=== PATIENT | female | born 1945 | race Caucasian/White ===

== ENCOUNTER 2016-12-02 15:54 | Inpatient (IN) | payer OTHER ==
--- NOTE | ~2016-12-02 | CR63 ---
[facility] A Service of [facility] RADIOLOGY TEXT RESULTS PATIENT: NICOL HARDING LOCATION: [place] [address] : [birth year] UNIT #: [id number] AGE: [address]: Jasbir Jean MD SEX: F ORDER DR: [id number] [facility] [address] [place], [place] [address] [id number] I MR#: [id number] Acc #: [id number] NAME: NICOL HARDING : 1945 SEX: F STUDY DATE/TIME: 12/02/2016 20:39 UNIT: [facility] ROOM: [facility] STUDY DESCRIPTION: CR Chest 2 View Attending Physician: Jasbir Jean M.D. Ordering Physician: Jasbir Jean M.D. Primary Care Physician: Yuki Roberson M.D. MEDICAL IMAGING REPORT This report is preliminary unless electronic signature is present EXAM Chest PA and lateral 12/02/2016 COMPARISON 10/28/2014. HISTORY Chest pain, tachycardia, shortness of breath for over 1 week. FINDINGS PA and lateral views are obtained showing postop changes of prior median sternotomy. Heart size is within normal limits. Vascular pattern in the chest is normal. Lungs are clear. CONCLUSION Postop changes of median sternotomy. No acute process in the chest. Dictated by... Francisco Griffin M.D. THIS IS AN ELECTRONICALLY VERIFIED REPORT Francisco Griffin M.D. at 12/06/2016 5:07 PM JOHNNY/michael TD: 12/03/2016 07:06 JOB #: [id number] MEDICAL IMAGING REPORT COPY
--- NOTE | ~2016-12-02 | CO ---
Unit #: [id number] #: [id number] Patient: NICOL HARDING [id number] [address] [place], [place] [address] [id number] I MR#: [id number] NAME: NICOL HARDING ROOM: [address] Age: 71 Sex: F Admission Date: 12/02/2016 : 1945 Attending Physician: Jasbir Jean M.D. Primary Care Physician: Yuki Roberson M.D. Consultation Date: 12/02/2016 CONSULTATION REPORT REASON FOR CONSULTATION Diabetes management. HISTORY OF PRESENT ILLNESS The patient is a 71-year-old female with past medical history of coronary artery disease, hypertension, hyperlipidemia, diabetes, COPD, hypothyroidism, who presented to the emergency department for evaluation of the above. The patient states that she has been feeling poorly for at least a week. She was apparently seen by her primary care physician on 11/26/2016 and was diagnosed with bronchitis. She was given azithromycin, Tessalon Perles and prednisone. She was being seen today in the office today for followup. She was noted to have atrial flutter with rapid ventricular response in a rate of 146 beats per minute. She was sent to the emergency department for further evaluation and treatment. The patient reports that she does have two- to three-pillow orthopnea as well as paroxysmal nocturnal dyspnea and dyspnea on exertion that is new over the past week. She denies any fever, no chest pain, no vomiting, no diarrhea, no abdominal pain, no change in her weight. In the emergency department, EKG confirmed atrial flutter with a rate of 116 beats per minute. She was given 15 mg of Cardizem followed by 20 mg and the started on a Cardizem drip. She was admitted by Dr. Jean. HIPS was consulted for diabetes management. Dr. Gutierrez was consulted for COPD. Regarding diabetes, the patient is on Januvia 50 mg daily as well as metformin 1000 mg b.i.d. She states that she has been taking her medications as prescribed. She states that her blood sugars are typically in the low 100s. Blood sugar in the emergency department was 208. PAST MEDICAL HISTORY 1. Admission to [facility] in 2007. She underwent coronary artery bypass grafting during that admission. 2. Coronary artery disease, status post coronary artery bypass grafting. The patient has not routinely followed up with a electrical manager. 3. COPD not on home oxygen and not followed by a laboratory analyst. 4. Hypertension. 5. Hyperlipidemia. 6. Diabetes. 7. Hypothyroidism. PAST SURGICAL HISTORY Unit #: [id number] #: [id number] Patient: NICOL HARDING 1. Thyroidectomy. 2. Hysterectomy. 3. Coronary artery bypass grafting. ALLERGIES 1. Penicillin. 2. Sulfa. 3. Lovastatin. 4. Simvastatin. 5. Atorvastatin. 6. Rosuvastatin. HOME MEDICATIONS 1. Aspirin 81 mg daily. 2. Azithromycin 250 mg daily. 3. Benzonatate 200 mg t.i.d. p.r.n. 4. Lexapro 20 mg daily. 5. Flonase daily. 6. Folic acid 1 mg daily. 7. Lasix 40 mg b.i.d. 8. Januvia 50 mg daily. 9. Levothyroxine 150 mcg daily. 10. Mobic 15 mg daily. 11. Metformin 1000 mg b.i.d. 12. Metoprolol 25 mg b.i.d. 13. Nitroglycerin 0.4 mg sublingual p.r.n. 14. Prednisone 40 mg daily. 15. Ventolin two puffs q.4 h. p.r.n. SOCIAL HISTORY The patient lives with her granddaughter. She quit smoking in 2007. There is no alcohol use. She walks without assistance. FAMILY HISTORY Notable for her mother having some type of bone malignancy. Her father had coronary artery disease. REVIEW OF SYSTEMS A complete review of systems is negative except as indicated in the HPI. PHYSICAL EXAMINATION VITAL SIGNS: Temperature not recorded, pulse initially 150, respirations 17, blood pressure 124/94, oxygen saturation 94% on room air. GENERAL: The patient is a female who is awake and alert. HEENT: Head is atraumatic. Mucous membranes are moist. NECK: Supple. Trachea is midline. LUNGS: Demonstrate scattered expiratory wheezes. Breathing is not labored with conversation. HEART: Irregular. ABDOMEN: Obese, soft, nontender. Bowel sounds present in all four quadrants. EXTREMITIES: Trace pedal edema. NEUROLOGIC: Patient is awake and alert. She follows commands. PSYCHIATRIC: Mood and affect are normal. Patient is cooperative. SKIN OF EXAMINED AREAS: Warm and dry. DIAGNOSTIC STUDIES LABORATORY: Complete blood count notable for white blood cell count of Unit #: [id number] #: [id number] Patient: NICOL HARDING 13.7. Troponin less than 0.05. Comprehensive metabolic panel notable for potassium 3.4, glucose 208, alkaline phosphatase 116, magnesium is 2. Urinalysis is essentially negative. IMAGING: It does not appear that she has had a chest x-ray. CARDIOVASCULAR: EKG shows atrial flutter with a rate of 116 beats per minute. ASSESSMENT The patient is a 71-year-old female with: 1. New-onset atrial fibrillation. 2. Coronary artery disease, status post coronary artery bypass grafting. 3. Hypertension. 4. Hyperlipidemia. 5. Uncontrolled diabetes. 6. Chronic obstructive pulmonary disease. 7. Former smoker. 8. Hypothyroidism. 9. Morbid obesity with a BMI of 41 present on admission. PLAN 1. Regarding diabetes, I have ordered a hemoglobin A1c as well as low dose sliding scale insulin with Accu-Cheks. 2. Regarding hypothyroidism, I have ordered a TSH. Thank you very much for the consultation. We will follow the patient along closely with you. Dictated by... Ruchi Bowie M.D. AVE/shan TD: 12/02/2016 21:24 JOB #: [id number] CONSULTATION REPORT X Ruchi Bowie MD CONSULTATION REPORT
--- NOTE | ~2016-12-02 | HP ---
Unit #: [id number] #: [id number] Patient: NICOL HARDING [id number] [place] [address] [facility]. [place], [place] [address] [id number] I MR#: [id number] NAME: NICOL HARDING. ROOM: 13278 Age: 71 Sex: F Admission Date: 12/02/2016 : 1945 Attending Physician: Jasbir Jean M.D. Primary Care Physician: Yuki Roberson M.D. HISTORY AND PHYSICAL CHIEF COMPLAINT Rapid heart rate with shortness of breath. HISTORY OF PRESENT ILLNESS This is a 71-year-old female who has prior history of coronary artery disease and bypass. She went to her primary care physician's office because she was having cough with shortness of breath. She was also having some palpitations. She had EKG done and was found to be in atrial flutter with rapid ventricular rate. She was sent here. She has been started on Cardizem drip. Now she is feeling a little better but she is still short of breath and has cough. She denies any chest pain, orthopnea, PND, or syncope. PAST MEDICAL HISTORY 1. Diabetes. 2. COPD. 3. Bronchial asthma. 4. Coronary artery disease, status post bypass. 5. Hypothyroidism. PAST SURGICAL HISTORY History of coronary artery bypass. HOME MEDICATIONS 1. Metformin 1000 mg b.i.d. 2. Metoprolol 25 mg b.i.d. 3. Januvia one tablet daily. 4. Lasix 40 mg b.i.d. 5. Ventolin inhaler. 6. Prednisone 40 mg p.o. daily. 7. She was also taking Zithromax. ALLERGIES 1. Penicillin. 2. Statin gives her muscle ache. SOCIAL HISTORY She does not smoke, does not drink. FAMILY HISTORY Negative for premature CAD. REVIEW OF SYSTEMS She is having a lot of cough. She gets short of breath. She has no chest Unit #: [id number] #: [id number] Patient: NICOL HARDING pain. She denies any palpitations or syncope. She denies any heartburn, dysphagia, dysuria. She denies hematuria or dysuria. She denies any back pain. She has some arthritis and difficulty walking. All other systems reviewed and they are negative. PHYSICAL EXAMINATION VITAL SIGNS: Heart rate 110, blood pressure 130/60, respiratory rate 18. GENERAL: She is lying comfortably in bed. HEENT: Eyes: Conjunctivae normal. Pupils round and reactive. Oral mucosa is moist. No central cyanosis. NECK: No thyromegaly. Carotid upstrokes are normal. JVD is markedly elevated. LUNGS: She is breathing normal, clear on auscultation. HEART: Prominent left parasternal lift. S1, S2 normally heard. Systolic murmur heard at the apex. ABDOMEN: Distended but soft. Liver and spleen are not enlarged. Abdominal aorta not palpable. RECTAL: Guaiac not indicated. EXTREMITIES: No pedal edema. 2+ bilateral femoral and dorsalis pedis pulses. Digits no clubbing. SKIN: No rash or abnormal pigmentation. NEUROLOGIC: She is oriented x3. Mood is normal. Muscle tone in all extremities normal. DIAGNOSTIC STUDIES CARDIOVASCULAR: EKG definitely having atrial flutter with rapid ventricular rate with nonspecific ST-T changes. ASSESSMENT 1. Atrial flutter with rapid ventricular rate. 2. Congestive heart failure. 3. Coronary artery disease, status post bypass. 4. History of diabetes. 5. Hypercholesterolemia, intolerant to statin. 6. History of chronic obstructive pulmonary disease. PLAN 1. Patient is to be admitted to a monitored bed. 2. We will continue home medications except metoprolol which we will increase to 50 mg b.i.d. and we will switch her to IV Lasix 40 mg t.i.d. 3. I will put her on Lovenox 1 mg/kg subcu b.i.d. 4. I will also do an echo to assess LV size and function. 5. I will also do serial troponin to rule out myocardial infarction. 6. I will consult Pulmonary for COPD and asthma management. 7. I will also consult HIPS service for diabetic management. Dictated by Rae Ledesma/shan TD: 12/02/2016 20:51 Unit #: [id number] #: [id number] Patient: NICOL HARDING JOB #: [id number] HISTORY AND PHYSICAL X Jasbir Jean MD HISTORY AND PHYSICAL
--- NOTE | ~2016-12-02 | BMI ---
[facility] DATE: 12/04/16 Patient: NICOL HARDING Physician: [employer] Address: [address] [facility] Room/Bed: [address] [place] [address], Zip: [place] [address] Admit Date: 12/02/16 Date of : [birth year] Height: 5 0 Weight: 206 93.8 HIGH BMI NOTE: DX: 71 YO FEMALE ADMITTED FOR FAST HEART RATE ANTHROPOMETRICS: HT: 60" WT: 93.8 KG BMI: 40.3 INTERVENTION: 1. HEART HEALTHY/ CONSISTENT CARBOHYDRATE DIET RECOMMENDATIONS: 1. CONTINUE CURRENT DIET TO PROMOTE GRADUAL WEIGHT LOSS AND GLYCEMIC CONTROL. Respectfully, GLYNN SANTOS RD, LD [facility] cc: client file
--- NOTE | ~2016-12-02 | EKG ---
PATIENT: NICOL HARDING UNIT #: [id number] Ventricular Rate: 56 BPM Atrial Rate: 56 BPM P-R Interval: 216 ms QRS Duration: 90 ms Q-T Interval: 518 ms QTC Calculation(Bezet): 499 ms P [place]: 39 degrees Calculated R [place]: -4 degrees Calculated T [place]: 42 degrees Diagnosis Line: Sinus bradycardia with marked sinus arrhythmia Diagnosis Line: with 1st degree A-V block Diagnosis Line: Prolonged QT Diagnosis Line: Abnormal ECG Diagnosis Line: When compared with ECG of 02-DEC-2016 15:39, Diagnosis Line: (unconfirmed) Diagnosis Line: Sinus rhythm has replaced Atrial flutter Diagnosis Line: Vent. rate has decreased BY 60 BPM Diagnosis Line: Questionable change in QRS axis Diagnosis Line: Confirmed by YOVANI MCMILLAN MD ([id number]) on 12/06/2016 Diagnosis Line: 7:09:12 PM INTERPRETING MD: HIPOLITO RANKIN
--- NOTE | ~2016-12-02 | DS ---
Unit #: [id number] #: [id number] Patient: NICOL HARDING [id number] [address] [place], [place] [address] [id number] I MR#: [id number] NAME: NICOL HARDING ROOM: 563 Age: 71 Sex: F Admission Date: 12/02/2016 : 1945 Discharge Date: 12/04/2016 Attending Physician: Jasbir Jean M.D. Primary Care Physician: Yuki Roberson M.D. DISCHARGE SUMMARY HOSPITAL COURSE The patient was admitted with cough, shortness of breath and palpitations. The patient went to her PCP, had an EKG done and was found to be in A fib with RVR and was sent to the hospital for further evaluation. The patient was initially placed on a Cardizem drip for rate control, and pulmonary and hospitalists were consulted to assist with managing the patient. HIPS was consulted for diabetes management, and pulmonary was consulted for shortness of breath and pulmonary management. The patient did eventually convert to sinus rhythm with a first-degree AV block. The patient had her Metoprolol increased from 25 to 50 mg while here and tolerated it well with stable blood pressure and heart rate. The patient was placed on Eliquis 5 mg p.o. b.i.d. for anticoagulation. Prior to the Eliquis the patient was on Lovenox therapeutic dose. Echo obtained during admission showed an EF of 45%. Pulmonary was managing the patient's COPD and has deemed the patient stable for discharge from their standpoint. It was determined that the blood sugars were probably running high due to the patient's use of prednisone at home. Pulmonary will follow up with the patient on an outpatient basis for a sleep study for obstructive sleep apnea evaluation. The patient had an echo on 12/03/16 that showed mild concentric LVH with A fib/flutter noted and an RVSP of 48, [id number] tricuspid regurgitation, EF 50% to 55%. The patient is stable on day of discharge. Heart rate is well controlled on current medications. The patient is able to get up and ambulate without any kind of complications or side effects of shortness of breath, chest pain, pressure or dizziness. DISCHARGE ALLERGIES Penicillin, sulfa, lovastatin, simvastatin, atorvastatin and rosuvastatin. DISCHARGE MEDICATIONS 1. Prednisone 40 daily. 2. Albuterol 2 puffs q.4 hours as needed for shortness of breath. 3. Flonase daily as needed. 4. Eliquis 5 mg p.o. b.i.d. 5. Lexapro 20 mg p.o. daily. 6. Metformin 1,000 mg p.o. b.i.d. 7. Januvia 50 mg p.o. daily. 8. Tessalon Perles 200 mg p.o. t.i.d. as needed for cough. 9. Metoprolol 50 mg p.o. b.i.d. Unit #: [id number] #: [id number] Patient: NICOL HARDING 10. Furosemide 40 mg p.o. b.i.d. 11. Aspirin 81 mg daily. 12. Mobic 15 mg p.o. daily as needed for pain. 13. Potassium chloride 20 mEq p.o. b.i.d. 14. Synthroid 150 mcg p.o. daily. 15. Nitroglycerin sublingual as needed for chest pain. 16. Folic acid 1 mg p.o. daily. PHYSICAL EXAMINATION GENERAL: This is a 71-year-old white female who is alert and oriented x3 in no apparent distress. VITAL SIGNS: Blood pressure 140/72, temp 97.8, pulse 58, respirations 16. HEENT: Pupils are equal, round and reactive. Oral mucosa is moist. LUNGS: Slight wheezing. NECK: No JVD. No thyromegaly. No lymphadenopathy. No carotid bruits. HEART: S1, S2. No S3, S4. No clicks. No rubs. No murmurs. ABDOMEN: Soft. Bowel sounds positive. Nontender, nondistended. EXTREMITIES: No edema. DIAGNOSTIC STUDIES DURING HOSPITALIZATION LABORATORY: Hemoglobin A1C of 7.5. BNP 51. Troponin less than 0.05 and 0.08 and 0.08 and 0.07. Sodium 133, potassium 3.5, chloride 103, CO2 23, glucose 171, BUN 25, creatinine 1.2. White count 14.1, hemoglobin 12.5, hematocrit 37.6, platelets 347. TSH 0.99. Urinalysis was negative for UTI. IMAGING: Chest x-ray showed no acute process. Vascular pattern normal. Heart size normal. Lungs clear. DISCHARGE DIAGNOSES 1. Atrial flutter with rapid ventricular response, now sinus bradycardia to sinus rhythm. 2. Atherosclerotic heart disease status post coronary artery bypass graft. 3. Chronic obstructive pulmonary disease. 4. Diabetes. 5. Hypothyroidism. 6. Ejection fraction of 50% to 55%. 7. Hyperlipidemia, intolerant to statin therapy. DISCHARGE PLAN The patient will be discharged home to follow up with pulmonary, cardiology and PCP. DISCHARGE CONDITION Stable. SPECIFIC DISCHARGE INSTRUCTIONS GIVEN TO PATIENT The patient is to take Eliquis twice a day for anticoagulation therapy; however, if the patient is unable to afford her Eliquis, the patient is to call the office on Tuesday to get a script for Coumadin therapy. Until Tuesday, she can take a full dose aspirin for antiplatelet therapy. Discussed this with Dr. Velasquez prior to discharge, who agrees that this plan is acceptable, and the patient is deemed stable for discharge. Dictated by... Delia Cannon APRN for Unit #: [id number] #: [id number] Patient: NICOL HARDING M.D. LA/db TD: 12/07/2016 09:07 JOB #: [id number] DISCHARGE SUMMARY X X DISCHARGE SUMMARY
--- NOTE | ~2016-12-02 | EKG ---
PATIENT: NICOL HARDING UNIT #: [id number] Ventricular Rate: 151 BPM Atrial Rate: 302 BPM QRS Duration: 68 ms Q-T Interval: 314 ms QTC Calculation(Bezet): 497 ms P [place]: 86 degrees Calculated R [place]: 65 degrees Calculated T [place]: -8 degrees Diagnosis Line: Atrial flutter with 2:1 A-V conduction Diagnosis Line: Marked ST abnormality, possible inferolateral Diagnosis Line: subendocardial injury Diagnosis Line: Abnormal ECG Diagnosis Line: No previous ECGs available Diagnosis Line: Confirmed by YOVANI MCMILLAN MD ([id number]) on 12/06/2016 Diagnosis Line: 7:03:54 PM INTERPRETING MD: HIPOLITO RANKIN
--- NOTE | ~2016-12-02 | EKG ---
PATIENT: NICOL HARDING UNIT #: [id number] Ventricular Rate: 116 BPM Atrial Rate: 288 BPM QRS Duration: 84 ms Q-T Interval: 358 ms QTC Calculation(Bezet): 497 ms Calculated R [place]: 54 degrees Calculated T [place]: 27 degrees Diagnosis Line: Atrial flutter with variable A-V block Diagnosis Line: Abnormal ECG Diagnosis Line: When compared with ECG of 02-DEC-2016 14:36, Diagnosis Line: (unconfirmed) Diagnosis Line: ST no longer depressed in Inferior leads Diagnosis Line: ST no longer depressed in Anterior leads Diagnosis Line: Nonspecific T wave abnormality no longer evident Diagnosis Line: in Lateral leads Diagnosis Line: Confirmed by YOVANI MCMILLAN MD ([id number]) on 12/06/2016 Diagnosis Line: 7:04:08 PM INTERPRETING MD: HIPOLITO RANKIN
--- NOTE | ~2016-12-02 | CO ---
Unit #: [id number] #: [id number] Patient: NICOL HARDING [id number] [address] [address] [id number] I MR#: [id number] NAME: NICOL HARDING ROOM: 563 Age: 71 Sex: F Admission Date: 12/02/2016 : 1945 Attending Physician: Jasbir Jean M.D. Primary Care Physician: Yuki Roberson M.D. Consultation Date: 12/02/2016 CONSULTATION REPORT REASON FOR CONSULTATION COPD and shortness of breath. HISTORY OF PRESENT ILLNESS This is a 71-year-old female who presented with a complaint of shortness of breath and was found to be in rapid atrial fibrillation. Denies any chest pain. No nausea, no vomiting, no diarrhea. I am seeing the patient at bedside. She denies any headache, blurry vision. No chest pain. REVIEW OF SYSTEMS Positive for pallor. No edema, no cyanosis, no jaundice. PHYSICAL EXAMINATION VITAL SIGNS: Temperature 98, pulse 87, respirations 12, blood pressure 130/70. NEUROLOGICAL: Awake, alert, oriented. No neuro deficit. HEENT: PERRLA. NECK: Supple. No JVD. CHEST: Bilateral air entry, bilateral mild rhonchi. GI: Nontender, soft. Bowel sounds positive. EXTREMITIES: No edema. PAST MEDICAL HISTORY 1. Coronary artery disease. 2. COPD. 3. Hypertension. 4. Dyslipidemia. 5. Diabetes. 6. Hypothyroidism. 7. Thyroidectomy. 8. Hysterectomy. 9. Coronary artery disease. 10. CABG. ALLERGIES Penicillin, sulfa, lovastatin, simvastatin, atorvastatin, rosuvastatin. HOME MEDICATIONS 1. Aspirin. 2. Azithromycin. 3. Benzonatate. 4. Lexapro. Unit #: [id number] #: [id number] Patient: NICOL HARDING 5. Flonase. 6. Folic acid. 7. Lasix. 8. Januvia. 9. Levothyroxine. 10. Mobic. 11. Metformin. 12. Metoprolol. 13. Nitroglycerin. 14. Prednisone. 15. Ventolin. SOCIAL HISTORY Quit smoking in 2007. No alcohol, no drug abuse. FAMILY HISTORY Positive for coronary artery disease. DIAGNOSTIC STUDIES Labs and imaging have been reviewed. ASSESSMENT AND PLAN 1. Chronic obstructive pulmonary disease. 2. Atrial fibrillation. 3. Likely sleep apnea. 4. Coronary artery disease. 5. Hypertension. 6. Dyslipidemia. 7. Diabetes mellitus. 8. Ex-smoker. Plan is to continue oxygen, bronchodilators, smoking cessation and needs sleep study as an outpatient. Rate control per cardiology. Cardiology workup in progress. Will continue to follow. Please see orders for detailed plan. Thank you very much for this consultation. Dictated by... Rae Mercado/gabriela TD: 12/03/2016 13:08 JOB #: [id number] CONSULTATION REPORT X Ceci Gutierrez MD CONSULTATION REPORT
[2016-12-02 15:04] LABS: BASOPHIL# 0.1 X10e3 (0-0.3); BASOPHIL% 0.8 % (0-2.5); EOSINOPHIL# 0.4 X10e3 (0-0.7); EOSINOPHIL% 2.9 % (0.0-7.0); HEMATOCRIT 40.4 % (35.0-45.0); HEMOGLOBIN 13.4 gm/dL (12.0-16.0); LYMPHOCYTE# 2.6 X10e3 (1.0-3.5); LYMPHOCYTE% 19.1 % (17.0-45.0); MEAN CORPUSCULAR HEMOGLOBIN 28.2 PG (28-34); MEAN CORPUSCULAR HGB CONC 33.2 g/dL (30-36); MEAN PLATELET VOLUME 7.8 FL (6.5-11.5); MONOCYTE# 0.5 X10e3 (0-1.0); MONOCYTE% 3.8 % (3.0-12.0); NEUTROPHIL# 10.1 X10e3 (1.5-7.1); NEUTROPHIL% 73.4 % (40-75); PLATELET COUNT 338 X10e3 (140-420); RED BLOOD COUNT 4.75 X10e (3.90-5.30); RED CELL DISTRIBUTION WIDTH 15.5 % (11.0-15.5); WHITE BLOOD COUNT 13.7 X10e3 (4.0-10.5)
[2016-12-02 15:05] LABS: DIFF IND NO
[2016-12-02 15:15] LABS: POC - TROPONIN <0.05 ng/mL (<=0.05)
[2016-12-02 15:37] LABS: ALBUMIN SERUM 3.7 g/dL (3.5-5.0); BILIRUBIN,TOTAL 0.7 mg/dL (0.2-2.0); BUN/CREATININE RATIO 19.09; CALCIUM SERUM 9.2 mg/dL (8.4-10.2); CREATININE SERUM 1.1 mg/dL (0.6-1.4); GLOM FILT RATE Estimated 51.7 mL/min (>60); POTASSIUM 3.4 mmol/L (3.5-5.1); PROTEIN TOTAL SERUM 7.1 g/dL (6.0-8.3)
[2016-12-02 15:52] LABS: URINE SOURCE CLEAN CATCH
[~2016-12-02 15:54] MED LIST: ALBUTEROL17 GM INH; METFORMIN; SYNTHROID; TESSALON PERLE100 M1 PO; TOPROL XL; WATER PILL; ZITHROMAX1 G/PKT PO
[2016-12-02] MEDS ORDERED: AZITHROMYCIN250 MG PO (16:04)
[2016-12-02] MEDS ORDERED: BAYER CHEWABLE81 MG PO (16:04)
[2016-12-02] MEDS ORDERED: BENZONATATE200 M1 PO (16:05)
[2016-12-02 16:06] LABS: URINE APPEARANCE CLEAR; URINE BILIRUBIN NEG (NEG); URINE BLOOD NEG (NEG); URINE COLOR YELLOW; URINE GLUCOSE NEG (NEG); URINE KETONE NEG (NEG); URINE LEUKOCYTE ESTERASE NEG (NEG); URINE NITRATE NEG (NEG); URINE PROTEIN NEG (NEG); URINE SPECIFIC GRAVITY 1.007 (1.003-1.035); URINE UROBILINOGEN 0.2 MG/DL (NEG)
[2016-12-02] MEDS ORDERED: LEXAPRO20 MG PO (16:06)
[2016-12-02] MEDS ORDERED: FLONASE 0.05% N16 G1 (16:06)
[2016-12-02] MEDS ORDERED: LASIX PO (16:07)
[2016-12-02] MEDS ORDERED: JANUVIA50 MG PO (16:07)
[2016-12-02] MEDS ORDERED: FOLIC ACID1 MG PO (16:07)
[2016-12-02] MEDS ORDERED: LEVOTHYROXINE150 MC1 PO (16:08)
[2016-12-02] MEDS ORDERED: METFORMIN HCL1000 M1 PO (16:09)
[2016-12-02] MEDS ORDERED: MOBIC15 MG PO (16:09)
[2016-12-02] MEDS ORDERED: METOPROLOL TAR25 MG PO (16:10)
[2016-12-02] MEDS ORDERED: NITROSTAT0.4 MG SL (16:11)
[2016-12-02] MEDS ORDERED: PREDNISONE PO (16:11)
[2016-12-02] MEDS ORDERED: ALBUTEROL17 GM INH (16:12)
[2016-12-02 16:17] LABS: CULTURE INDICATED? NO
[2016-12-02 22:38] LABS: CK TOTAL 23 IU/L (26-140)
[2016-12-03 03:39] LABS: BASOPHIL# 0.1 X10e3 (0-0.3); BASOPHIL% 0.9 % (0-2.5); EOSINOPHIL# 0.3 X10e3 (0-0.7); EOSINOPHIL% 2.3 % (0.0-7.0); HEMATOCRIT 37.6 % (35.0-45.0); HEMOGLOBIN 12.5 gm/dL (12.0-16.0); LYMPHOCYTE% 21.1 % (17.0-45.0); MEAN CELL VOLUME 85.8 FL (83-96); MEAN CORPUSCULAR HEMOGLOBIN 28.6 PG (28-34); MEAN CORPUSCULAR HGB CONC 33.3 g/dL (30-36); MEAN PLATELET VOLUME 7.7 FL (6.5-11.5); MONOCYTE# 0.7 X10e3 (0-1.0); MONOCYTE% 4.6 % (3.0-12.0); NEUTROPHIL% 71.1 % (40-75); PLATELET COUNT 347 X10e3 (140-420); RED BLOOD COUNT 4.38 X10e (3.90-5.30); RED CELL DISTRIBUTION WIDTH 15.3 % (11.0-15.5); WHITE BLOOD COUNT 14.1 X10e3 (4.0-10.5)
[2016-12-03 03:45] LABS: DIFF IND NO
[2016-12-03 03:53] LABS: CK TOTAL 28 IU/L (26-140)
[2016-12-03 04:01] LABS: BUN/CREATININE RATIO 20.83; CALCIUM SERUM 8.5 mg/dL (8.4-10.2); CREATININE SERUM 1.2 mg/dL (0.6-1.4); GLOM FILT RATE Estimated 46.8 mL/min (>60); POTASSIUM 3.5 mmol/L (3.5-5.1)
[2016-12-03 09:41] LABS: CK TOTAL 35 IU/L (26-140)
[2016-12-04] MEDS ORDERED: K-DUR20 ME1 PO (16:15)
[2016-12-04] MEDS ORDERED: ELIQUIS5 MG PO (16:16)
[2016-12-04] MEDS ORDERED: LOPRESSOR PO (16:16)
== END 2016-12-04 18:03 | disposition home or self-care (01) | DRG 308 ==
LOC: CED 15:54 → CEDOF 19:24 → C5C 12-03 05:06
PROVIDERS: Emergency Medicine; Internal Medicine Cardiovascular Disease
PROC: B246YZZ Ultrasonography of Right and Left Heart using Other Contrast (ICD-10-PCS; principal; 2016-12-03)
DX: I48.92 Unspecified atrial flutter (principal); I50.33 Acute on chronic diastolic (congestive) heart failure; E11.65 Type 2 diabetes mellitus with hyperglycemia; Z68.41 Body mass index [BMI] 40.0-44.9, adult; Z95.1 Presence of aortocoronary bypass graft; I11.0 Hypertensive heart disease with heart failure; I25.10 Atherosclerotic heart disease of native coronary artery without angina pectoris; E78.5 Hyperlipidemia, unspecified; Z88.0 Allergy status to penicillin; Z88.2 Allergy status to sulfonamides; Z88.8 Allergy status to other drugs, medicaments and biological substances; Z79.82 Long term (current) use of aspirin; E66.01 Morbid (severe) obesity due to excess calories; E03.9 Hypothyroidism, unspecified; E78.00 Pure hypercholesterolemia, unspecified
CPT/HCPCS: 36415; 71020; 80048; 80053; 81003; 82550; 82553; 82947; 83036; 83735; 83880; 84443; 84484; 85025; 93005; 93306; 94640; 94760; 96365; 96370; 96375; 99285; J1650; J1815; J1940

== ENCOUNTER 2017-03-21 12:08 | Emergency (ER) | payer OTHER ==
--- NOTE | ~2017-03-21 | CR72 ---
[facility] A [facility] RADIOLOGY TEXT RESULTS PATIENT: NICOL HARDING LOCATION: SED : 43 UNIT #: [id number] AGE: [address]: Duy Kan MD SEX: F ORDER DR: [id number] [place] [address] [id number] E MR#: [id number] Acc #: [id number] NAME: NICOL HARDING : 1945 SEX: F STUDY DATE/TIME: 03/21/2017 12:26 UNIT: SED ROOM: STUDY DESCRIPTION: CR Chest Single View Portable Attending Physician: Duy Kan M.D. Ordering Physician: Duy Kan M.D. Primary Care Physician: Yuki Roberson M.D. MEDICAL IMAGING REPORT This report is preliminary unless electronic signature is present. EXAM Portable chest x-ray, 03/21/2017. HISTORY Short of air, hypertension, tachycardia. History of atrial fibrillation, bypass. Symptoms began 7-8 days ago. TECHNIQUE AP radiograph of the chest is presented. COMPARISON STUDIES 12/02/2016 FINDINGS Status post median sternotomy and CABG. Mild cardiac enlargement is stable. Lungs are well inflated without evidence of acute infectious or inflammatory disease. There is no pleural effusion or pneumothorax. No suspicious nodule. Dictated by... Francisco Simpson M.D. THIS IS AN ELECTRONICALLY VERIFIED REPORT Francisco Simpson M.D. at 03/22/2017 3:50 PM MARTHA/veda TD: 03/21/2017 14:31 JOB #: [id number] [facility] A [facility] RADIOLOGY TEXT RESULTS PATIENT: NICOL HARDING LOCATION: SED : 43 UNIT #: [id number] AGE: [address]: Duy Kan MD SEX: F ORDER DR: MEDICAL IMAGING REPORT Page 1 of 1
--- NOTE | ~2017-03-21 | EKG ---
PATIENT: NICOL HARDING UNIT #: [id number] Ventricular Rate: 91 BPM Atrial Rate: 312 BPM QRS Duration: 72 ms Q-T Interval: 384 ms QTC Calculation(Bezet): 472 ms Calculated R [place]: 13 degrees Calculated T [place]: -8 degrees Diagnosis Line: Atrial flutter Diagnosis Line: Septal infarct , age undetermined Diagnosis Line: Abnormal ECG Diagnosis Line: When compared with ECG of 21-MAR-2017 11:54, Diagnosis Line: (unconfirmed) Diagnosis Line: Atrial fibrillation has replaced Sinus rhythm Diagnosis Line: Vent. rate has decreased BY 53 BPM Diagnosis Line: Septal infarct is now Present Diagnosis Line: ST less depressed in Inferior leads Diagnosis Line: Confirmed by YOVANI MCMILLAN MD ([id number]) on 03/23/2017 Diagnosis Line: 9:39:54 AM INTERPRETING MD: HIPOLITO RANKIN
--- NOTE | ~2017-03-21 | EKG ---
PATIENT: NICOL HARDING UNIT #: [id number] Ventricular Rate: 144 BPM Atrial Rate: 144 BPM P-R Interval: 134 ms QRS Duration: 72 ms Q-T Interval: 286 ms QTC Calculation(Bezet): 442 ms Calculated R [place]: 30 degrees Calculated T [place]: -39 degrees Diagnosis Line: Sinus tachycardia Diagnosis Line: Nonspecific ST abnormality Diagnosis Line: Abnormal QRS-T angle, consider primary T wave Diagnosis Line: abnormality Diagnosis Line: Abnormal ECG Diagnosis Line: When compared with ECG of 03-DEC-2016 10:45, Diagnosis Line: Significant changes have occurred Diagnosis Line: Confirmed by YOVANI MCMILLAN MD ([id number]) on 03/23/2017 Diagnosis Line: 9:39:37 AM INTERPRETING MD: HIPOLITO RANKIN
[~2017-03-21 12:08] MED LIST changes: +AZITHROMYCIN250 MG PO; +BAYER CHEWABLE81 MG PO; +BENZONATATE200 M1 PO; +ELIQUIS5 MG PO; +FLONASE 0.05% N16 G1; +FOLIC ACID1 MG PO; +JANUVIA50 MG PO; +K-DUR20 ME1 PO; +LASIX PO; +LEVOTHYROXINE150 MC1 PO; +LEXAPRO20 MG PO; +LOPRESSOR PO; +METFORMIN HCL1000 M1 PO; +METOPROLOL TAR25 MG PO; +MOBIC15 MG PO; +NITROSTAT0.4 MG SL; +PREDNISONE PO
[2017-03-21 12:15] LABS: POC - CKMB 1.6 ng/mL (0.0-7.9); POC - TROPONIN <0.05 ng/mL (<=0.05)
[2017-03-21 12:20] LABS: BASOPHIL# 0.1 X10e3 (0-0.3); BASOPHIL% 0.9 % (0-2.5); EOSINOPHIL# 0.3 X10e3 (0-0.7); EOSINOPHIL% 2.9 % (0.0-7.0); HEMATOCRIT 39.1 % (35.0-45.0); HEMOGLOBIN 13.1 gm/dL (12.0-16.0); LYMPHOCYTE% 19.5 % (17.0-45.0); MEAN CELL VOLUME 86.3 FL (83-96); MEAN CORPUSCULAR HEMOGLOBIN 28.9 PG (28-34); MEAN CORPUSCULAR HGB CONC 33.5 g/dL (30-36); MEAN PLATELET VOLUME 8.2 FL (6.5-11.5); MONOCYTE# 0.5 X10e3 (0-1.0); NEUTROPHIL# 7.5 X10e3 (1.5-7.1); NEUTROPHIL% 71.7 % (40-75); PLATELET COUNT 292 X10e3 (140-420); RED BLOOD COUNT 4.53 X10e (3.90-5.30); RED CELL DISTRIBUTION WIDTH 14.4 % (11.0-15.5); WHITE BLOOD COUNT 10.4 X10e3 (4.0-10.5)
[2017-03-21 12:21] LABS: DIFF IND NO
[2017-03-21 12:30] LABS: INR 1.2; PROTHROMBIN TIME (PATIENT) 13.6 SECONDS (9.5-12.4)
[2017-03-21 12:37] LABS: PARTIAL THROMBOPLASTIN TIME 27.6 SECONDS (25.6-38.1)
[2017-03-21 12:38] LABS: ALBUMIN SERUM 3.7 g/dL (3.5-5.0); BILIRUBIN, DIRECT 0.1 mg/dL (0.0-0.2); BILIRUBIN,INDIRECT 0.3 mg/dL (0.0-0.9); BILIRUBIN,TOTAL 0.4 mg/dL (0.2-2.0); BUN/CREATININE RATIO 16.66; CALCIUM SERUM 8.6 mg/dL (8.4-10.2); CREATININE SERUM 0.9 mg/dL (0.6-1.4); GLOM FILT RATE Estimated 63.5 mL/min (>60); POTASSIUM 3.5 mmol/L (3.5-5.1); PROTEIN TOTAL SERUM 7.6 g/dL (6.0-8.3)
[2017-03-21 13:43] LABS: POC - CKMB 1.7 ng/mL (0.0-7.9); POC - TROPONIN <0.05 ng/mL (<=0.05)
== END 2017-03-21 14:22 | disposition home or self-care (01) ==
LOC: SED 12:08
PROVIDERS: Emergency Medicine
DX: I48.91 Unspecified atrial fibrillation (principal); R07.89 Other chest pain; F32.9 Major depressive disorder, single episode, unspecified; E11.9 Type 2 diabetes mellitus without complications; Z90.710 Acquired absence of both cervix and uterus; Z95.1 Presence of aortocoronary bypass graft; Z88.0 Allergy status to penicillin; Z88.2 Allergy status to sulfonamides; Z88.8 Allergy status to other drugs, medicaments and biological substances; Z79.899 Other long term (current) drug therapy; Z79.82 Long term (current) use of aspirin
CPT/HCPCS: 36415; 71010; 80048; 80076; 82553; 84484; 85025; 85610; 85730; 93005; 96374; 99284

== ENCOUNTER 2017-05-02 14:54 | Emergency (ER) | payer OTHER ==
--- NOTE | ~2017-05-02 | CR63 ---
[facility] A Service of [facility] RADIOLOGY TEXT RESULTS PATIENT: NICOL HARDING LOCATION: SED : 43 UNIT #: [id number] AGE: [address]: Duy Kan MD SEX: F ORDER DR: [id number] [place] [id number] MR#: [id number] Acc #: [id number] NAME: NICOL HARDING : 1945 SEX: F STUDY DATE/TIME: 05/02/2017 15:17 UNIT: SED ROOM: STUDY DESCRIPTION: CR Chest 2 View Attending Physician: Duy Kan M.D. Ordering Physician: Duy Kan M.D. Primary Care Physician: Yuki Roberson M.D. MEDICAL IMAGING REPORT This report is preliminary unless electronic signature is present. EXAM PA and lateral chest DATE 05/02/2017 at 15:17 HISTORY 71-year-old female who fell and has right rib pain since 04/30/2017. Fell against a deck. COMPARISON AP portable chest 03/31/2017 FINDINGS There is moderate generalized cardiomediastinal enlargement. It appears larger than on the previous examination which could be, in part, related to differences in patient positioning. Median sternotomy changes are present. Pulmonary vascular distribution is normal. No acute airspace disease is identified. Degenerative loss of disc height with multilevel endplate sclerosis in the thoracic spine. Calcific atherosclerosis in the thoracic aorta and abdominal aorta. IMPRESSION 1. Moderate cardiac enlargement which appears increased compared to the previous examination. No evidence of pulmonary edema or acute airspace disease. 2. Median sternotomy changes. Dictated by... Sara Nowak M.D. THIS IS AN ELECTRONICALLY VERIFIED REPORT [facility] A Service [facility] RADIOLOGY TEXT RESULTS PATIENT: NICOL HARDING LOCATION: SED : 43 UNIT #: [id number] AGE: [address]: Duy Kan MD SEX: F ORDER DR: Sara Nowak M.D. at 05/03/2017 2:02 PM [facility]/marya TD: 05/02/2017 22:30 JOB #: [id number] MEDICAL IMAGING REPORT Page 1 of 1
== END 2017-05-02 16:03 | disposition home or self-care (01) ==
LOC: SED 14:54
DX: S29.012A Strain of muscle and tendon of back wall of thorax, initial encounter (principal); F32.9 Major depressive disorder, single episode, unspecified; I48.91 Unspecified atrial fibrillation; Z88.0 Allergy status to penicillin; Z88.8 Allergy status to other drugs, medicaments and biological substances; Z79.82 Long term (current) use of aspirin; Z79.899 Other long term (current) drug therapy; W19.XXXA Unspecified fall, initial encounter; Y92.009 Unspecified place in unspecified non-institutional (private) residence as the place of occurrence of the external cause
CPT/HCPCS: 71020; 99283